=== PATIENT | male | born 1930 | race Caucasian/White ===

== ENCOUNTER 2016-07-06 12:58 | Outpatient (CLI) | payer MEDICARE, OTHER ==
[2016-07-06 13:10] LABS: BASOPHILS % 0.3 (0.0-1.5); EOSINOPHILS % 7.8 % (0.0-6.8); MEAN CORPUSCULAR HEMOGLOBIN 30.5 pg (28.0-34.0); MEAN CORPUSCULAR VOLUME 91.2 fl (80.0-100.0); MONOCYTES % 6.3 % (0.0-11.0); NEUTROPHILS # 2.8 # k/uL (1.4-7.7)
--- NOTE | 2016-07-06 17:03 | Diagnostic Imaging Report ---
[facility] [address] [facility].[address] [address] Report Submission Date: Jul 06, 2016 3:45:13 PM CDT Patient Study Name: ANDREAS MA (ALAN) Date: Jul 06, 2016 1:11:42 PM CDT Modality Type: CR Gender: M Description: CHEST : [birth year] Institution: [facility] Physician: COLLIN JOSE - OP 2 views of the chest History: COUGH, DYSPNEA ON EXERTION. FORMER SMOKER OF 30 YEARS The findings: No comparison studies Emphysema Heart is normal in size. Aortic calcification is present There is no focal consolidation, pleural effusion or pneumothorax There is patchy bibasilar atelectasis Impression: Emphysema Patchy bibasilar atelectasis No pleural effusion or pneumothorax Electronically signed on Jul 06, 2016 3:45:13 PM CDT by: Stephenie GARRETT
== END 2016-07-06 13:00 ==
LOC: LAB 12:58
PROVIDERS: ATTEND Family Medicine
DX: I10 Essential (primary) hypertension (principal); R05 Cough
CPT/HCPCS: 36415; 71020; 85025

== ENCOUNTER 2017-01-17 17:57 | Outpatient (CLI) | payer MEDICARE, OTHER ==
[2017-01-17 18:35] LABS: MEAN CORPUSCULAR HEMOGLOBIN 30.1 pg (28.0-34.0)
--- NOTE | 2017-01-17 18:43 | Diagnostic Imaging Report ---
[facility] [address] [facility].[address] [address] Report Submission Date: Jan 17, 2017 6:37:09 PM CDT Patient Study Name: ANDREAS MA (ALAN) Date: Jan 17, 2017 6:00:25 PM CDT Modality Type: CR Gender: M Description: CHEST : [birth year] Institution: [facility] Physician: MOUNIKA SANCHEZ Examination: PA and lateral chest. History: Evaluate lung ramos. Comparison exam: 06 July 2016 Findings: PA lateral chest demonstrate a normal cardiac and mediastinal silhouette. Vascular calcifications involving the aortic arch. Stable muscle attenuation over the lower lung regions, right greater than left. Lungs are hyperinflated with flattening of the diaphragms. Mild parenchymal fullness involving the inferior/posterior right hilum. No blunting of the costophrenic margins. Osseous structures are appropriate for age. Impression: Stable emphysematous changes. Inferior/posterior right hilar parenchymal haziness/infiltrate. No effusion. Electronically signed on Jan 17, 2017 6:37:09 PM CDT by: Brian Lerner A.O. FOX MEMORIAL HOSPITALJeffrey
[2017-01-18 06:54] LABS: TOXIC GRANULATION PRESENT; TOXIC VACUOLATION PRESENT
== END 2017-01-17 18:00 ==
LOC: RAD 17:57
PROVIDERS: ATTEND Emergency Medicine
DX: J18.9 Pneumonia, unspecified organism (principal)
CPT/HCPCS: 71020; 85025

== ENCOUNTER 2017-01-20 11:56 | Inpatient (IN) | payer MEDICARE, OTHER ==
--- NOTE | 2017-01-20 12:11 | ED Physician Documentation ---
General Adult - HISTORIAN Historian: patient, other (family memeber) - HPI Stated Complaint: n/v/diarrhea, weakness Chief Complaint: General Adult Onset: days ago (3) Timing: still present Severity: moderate Further Comments: yes (Pt is an 86 yo male with c/o n/v/diarrhea, weakness. Pt was seen on 01/17/17 and had an CXR showing Inferior/posterior right hilar haziness/infiltrate. Pt has been taking cefuroxime. Pt has not had fever, and complains only of weakness, diarrhea and nausea/vomiting.) - ROS CONST: weakness EYES/ENT: none CVS/RESP: other (recent infiltrate on cxr) GI/: vomiting, nausea, diarrhea MS/SKIN/LYMPH: none - PAST HX Past History: COPD (on home O2, BPH), hypertension Allergies/Adverse Reactions: Allergies Allergy/AdvReac Type Severity Reaction Status Date / Time Penicillins Allergy Unknown Rash Verified 01/20/17 12:43 Home Medications: Ambulatory Orders Medication Instructions Recorded Budesonide/Formoterol Fumarate 1 puff IN DAILY 01/20/17 [Symbicort 160-4.5 Mcg Inhaler] Memantine HCl/Donepezil HCl 1 cap PO DAILY 01/20/17 [Namzaric 28 mg-10 mg Capsule] - SOCIAL HX Smoking History: quit greater than 1 year - FAMILY HX Family History: No - REVIEWED ASSESSMENTS Nursing Assessment Reviewed: Yes Vitals Reviewed: Yes Progress - Progress Progress: CXR: Stable emphysematous changes. Increased right lower lung pneumonic infiltrate [since 01-17-17]. No effusion. Levaquin 500 mg IV in ER Admit to Dr. Yoon. General Adult Physical Exam - PHYSICAL EXAM GENERAL APPEARANCE: mild distress EENT: pharynx normal NECK: normal inspection, supple RESPIRATORY: no resp distress, chest non-tender, breath sounds normal CVS: reg rate & rhythm, heart sounds normal ABDOMEN: soft, no organomegaly, increased BS BACK: normal inspection, no CVA tenderness SKIN: warm/dry, normal color EXTREMITIES: non-tender, normal range of motion, no evidence of injury NEURO: oriented X3 (baseline mental status), motor nml, sensation nml Discharge Clincal Impression: Pneumonia Qualifiers: Pneumonia type: due to unspecified organism Laterality: right Lung location: lower lobe of lung Qualified Code(s): J18.1 - Lobar pneumonia, unspecified organism Condition: Stable Disposition: 09 ADMITTED INPATIENT Decision to Admit: [id number] Decision Time: 14:43
[2017-01-20] MEDS ORDERED: 0.9 % SODIUM CHLORIDE 500 ML IV ONE (12:21)
[2017-01-20 12:47] LABS: MEAN CORPUSCULAR HEMOGLOBIN 29.7 pg (28.0-34.0); MEAN CORPUSCULAR VOLUME 90.8 fl (80.0-100.0)
[2017-01-20 13:00] LABS: MONOCYTES % 2 % (0-11); SEGMENTED NEUTROPHILS % 94 % (39-79); eGFR (African) > 60; eGFR (Non-African) 55
[2017-01-20] MEDS ORDERED: ONDANSETRON HCL/PF 4 MG/ 2ML VIAL IVP ONE (13:07)
[2017-01-20] MEDS ORDERED: IPRATROPIUM/ALBUTEROL SULFATE 3 ML AMPUL.NEB NEB PRN (14:30)
[2017-01-20] MEDS ORDERED: LEVOFLOXACIN 500MG/D5W 100ML 500 MG in PREMIX BAG 1 BAG IV ONE (14:31)
[2017-01-20] MEDS ORDERED: LEVOFLOXACIN 500MG/D5W 100ML 100 ML IV ONE (14:33)
--- NOTE | 2017-01-20 14:46 | Diagnostic Imaging Report ---
LAUREN SNOW [facility] [address] [facility] [address] [address] Report Submission Date: Jan 20, 2017 1:05:19 PM CDT Patient Study Name: ANDREAS MA (ALAN) Date: Jan 20, 2017 12:42:07 PM CDT Modality Type: CR Gender: M Description: CHEST : [birth year] Institution: [facility] Physician: LAUREN SNOW Examination: PA and lateral chest. History: Evaluate lung ramos. Comparison exam: 17 January 2017 Findings: PA lateral chest demonstrate a normal cardiac and mediastinal silhouette. Vascular calcifications involving the aortic arch. Lungs are hyperinflated with flattening of the diaphragms. Increased parenchymal fullness involving the right lower lung. No blunting of the costophrenic margins. Osseous structures are appropriate for age. Impression: Stable emphysematous changes. Increased right lower lung pneumonic infiltrate. No effusion. Electronically signed on Jan 20, 2017 1:05:19 PM CDT by: Brian GARRETT
[2017-01-20 15:25] VITALS: BMI 24.3
--- NOTE | 2017-01-20 15:59 | History and Physical Report ---
History of Present Illnes - History of Present Illness Reason for Visit: Vomiting History of Present Illness: Patient presented to the ER with vomiting and nausea. He has been ill for a week. He was seen in clinic 01-17 with a cough and SOB. Found to have R hilar infiltrate and WBC 13,000. Put on zpack and cefuroxime. He came back for recheck on 01-19 and was doing better. Daughter reports today he woke up weak and felt much worse. Started vomiting so came to the ER. Found to have increased infiltrate on CXR as well as WBC up to 15,000. He will be admitted for treatment. He has home O2 routinely. SAT's in the 80's without O2 but 92 % on his usual setting. 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 Villalobos who noted 11/18 that patient was incompetent based on his testing.) - Past Surgical History Past Surgical History: Other (Some sort of eye surgery) - Past Family History Brother 1 Family History: (X 3 - Alzeheimers) Sister 1 Family History: (Dementia) - Past Social History Smoke: Quit (after years of heavy smoking) Alcohol: None Drugs: None Lives: With Family (daughter) - Health Maintenance Health Maintenance: Cholesterol, Influenza Vaccine, Pneumococcal Vaccine Pneumonia Vaccine: Yes Resuscitation Status: Resusciation Status Resuscitation Status Full Code Review of Systems - Review of Systems Constitutional: Weakness. negative: Fever Eyes: negative: pain ENT: negative: Ear Pain Respiratory: Cough, Shortness of Breath Cardiovascular: negative: Chest Pain, Palpitations Gastrointestinal: Nausea, Vomiting. negative: Constipation Genitourinary: negative: Dysuria Musculoskeletal: negative: Neck Pain Skin: negative: Rash Neurological: Weakness - Medications/Allergies Allergies/Adverse Reactions: Allergies Allergy/AdvReac Type Severity Reaction Status Date / Time Penicillins Allergy Unknown Rash Verified 01/20/17 12:43 Home Medications: Home Medications Budesonide/Formoterol Fumarate [Symbicort 160-4.5 Mcg Inhaler] 1 puff IN DAILY 01/20/17 Memantine HCl/Donepezil HCl [Namzaric 28 mg-10 mg Capsule] 1 cap PO DAILY Current Inpatient Medications: Current Inpatient Medications Albuterol/Ipratropium (Duoneb) 3 ml NEB QID DALIA Amlodipine Besylate (Norvasc) 5 mg PO DAILY [facility] Donepezil HCl (Aricept) 5 mg PO DAILY [facility] Enoxaparin Sodium (Lovenox) 30 mg SQ QD [facility] Stop: 02/03/17 15:59 Azithromycin 500 mg/ Sodium (Chloride) 250 mls @ 125 mls/hr IV Q24H DALIA Stop: 01/30/17 14:59 Levofloxacin/Dextrose 500 mg/ (PREMIX BAG) 100 mls @ 100 mls/hr IV DAILY [facility] Stop: 02/04/17 08:59 Lisinopril (Prinivil) 10 mg PO DAILY [facility] Montelukast Sodium (Singulair) 10 mg PO DAILY [facility] Mupirocin (Bactroban) 1 appl TP BID [facility] Sodium Chloride (Normal Saline Flush) 3 ml IV BID [facility]IA Tamsulosin HCl (Flomax) 0.4 mg PO DAILY [facility] Exam - Exam Vital Signs: Vital Signs (72 hours) 01/20/17 01/20/17 01/20/17 14:50 14:58 15:06 Temperature 97.2 F L 97.2 F L Pulse Rate [ 93 H Pulse ox] Pulse Rate [ 111 H 111 H Right] Respiratory 24 20 24 Rate Blood Pressure 135/63 [Left Arm] Blood Pressure 140/78 140/78 [Right Arm] O2 Sat by Pulse 94 97 94 Oximetry General: Alert, Oriented to Person, Oriented to Place, Cooperative, No acute distress. No: Oriented to Time HEENT: Atraumatic, PERRLA, EOMI, Mouth Mucous membr. moist/[place] Neck: Normal Range of Motion Lungs: Rhonchi Cardiovascular: Regular rate Abdomen: Normal bowel sounds, Soft, No tenderness Integumentary: Normal Extremities: No edema Neurological: Generalized Weakness Psych/Mental Status: Mood NL. No: Mental status NL, Appropriate Affect, Intact Judgment Assessment/Plan - Assessment/Plan (1) HTN (hypertension) Status: Chronic Current Visit: No Qualifiers: Hypertension type: essential hypertension Qualified Code(s): I10 - Essential (primary) hypertension Plan: Stable. Watch. (2) COPD (chronic obstructive pulmonary disease) Status: Acute Current Visit: Yes Qualifiers: COPD type: COPD with acute lower respiratory infection Qualified Code(s): J44.0 - Chronic obstructive pulmonary disease with acute lower respiratory infection Plan: Plan duonebs qid. Does not seem to be in exacerbation at this time. Will hold IV steroids but watch closely. Continue O2. (3) Dementia Status: Chronic Current Visit: No Qualifiers: Dementia type: Alzheimer's disease Alzheimer's disease onset: late-onset Dementia behavioral disturbance: without behavioral disturbance Qualified Code (s): G30.1 - Alzheimer's disease with late onset; F02.80 - Dementia in other diseases classified elsewhere without behavioral disturbance; F02.80 - Dementia in other diseases classified elsewhere without behavioral disturbance; F02.80 - Dementia in other diseases classified elsewhere without behavioral disturbance Plan: Stable. (4) DAISY (obstructive sleep apnea) Status: Chronic Current Visit: No Plan: Will ask daughter to bring in CPAP. (5) Pneumonia Status: Acute Current Visit: Yes Qualifiers: Pneumonia type: due to unspecified organism Laterality: right Lung location: lower lobe of lung Qualified Code(s): J18.1 - Lobar pneumonia, unspecified organism Plan: Patient has failed outpatient treatment of his pneumonia given worsening symptoms, worsening CXR, and increased WBC. Admit for IV levaquin and zithromax. Watch labs. Blood cultures pending. Lungs are not very good functioning at baseline. Watch closely. VTE Assessment - RISK FACTOR SCORE VTE RISK FACTOR SCORES: AGE OVER 60 YEARS, ACUTE INFECTION OTHER THEN SEPSIS
[2017-01-20] MEDS ORDERED: ENOXAPARIN SODIUM 30 MG/0.3 ML DISP.SYRIN SQ ONE ×2 (17:04→23:16)
[2017-01-20] MEDS: AZITHROMYCIN 500 MG in 0.9 % SODIUM CHLORIDE 250 ML IV SCH (17:08)
[2017-01-20] MEDS: ENOXAPARIN SODIUM 30 MG/0.3 ML DISP.SYRIN SQ SCH (17:08)
[2017-01-20] MEDS ORDERED: IPRATROPIUM/ALBUTEROL SULFATE 3 ML AMPUL.NEB NEB ONE ×2 (17:33→19:22)
[2017-01-20] MEDS: IPRATROPIUM/ALBUTEROL SULFATE 3 ML AMPUL.NEB NEB SCH ×2 (17:38→21:25)
[2017-01-20] MEDS: SALINE FLUSH 10 ML DISP.SYRIN IV SCH (19:27)
[2017-01-20] MEDS: MUPIROCIN 2% OINT 22GM TUBE TP SCH (19:27)
[2017-01-20] MEDS ORDERED: MUPIROCIN 2% OINT 22GM TUBE TP SCH (21:00)
[2017-01-20] MEDS ORDERED: CEFUROXIME AXETIL 250 MG TABLET PO SCH (21:00)
[2017-01-20] MEDS ORDERED: TAMSULOSIN HCL 0.4 MG CAP.ER.24H PO ONE (23:16)
[2017-01-20] MEDS ORDERED: DONEPEZIL HCL 5 MG TABLET PO ONE (23:16)
[2017-01-20] MEDS ORDERED: amLODIPine BESYLATE 5 MG TABLET ONE (23:16)
[2017-01-20] MEDS ORDERED: LISINOPRIL 5 MG TABLET ONE (23:17)
[2017-01-20] MEDS ORDERED: MONTELUKAST SODIUM 10 MG TABLET PO ONE (23:17)
[2017-01-21] MEDS: IPRATROPIUM/ALBUTEROL SULFATE 3 ML AMPUL.NEB NEB SCH ×4 (05:00→21:28)
--- NOTE | 2017-01-21 06:45 | Diagnostic Imaging Report ---
MARIE JOSE [facility] [address] Count Includes [facility] [address] [place], [place]. [address] Report Submission Date: Jan 21, 2017 6:42:56 AM CDT Patient Study Name: ANDREAS MA (ALAN) Date: Jan 21, 2017 6:13:54 AM CDT Modality Type: CR Gender: M Description: ABDOMEN : [birth year] Institution: [facility] Physician: MARIE JOSE Examination: Abdomen series History: Abdominal discomfort Comparison exam: Plain film chest dated 20 January 2017 Findings: 4 views obtained of the chest and abdomen. Single view the chest demonstrates a normal cardiac silhouette. Vascular calcifications involving the aortic arch. Continued parenchymal infiltrate involving the inferolateral margin of the right lower lung: slightly increased when compared with the prior examination. No blunting of the costophrenic margins. No abnormal dilation of the large or small bowel. Air and stool throughout the large bowel. No suspicious calcification projecting over the renal fossa or the lower pelvic region. Osseous structures demonstrate degenerative changes and slight curvature of the lumbar spine to the left. The Impression: Increased right lower lung pneumonic infiltrate. No effusion. No obstruction. No suspicious calcifications by plain film sensitivity. Electronically signed on Jan 21, 2017 6:42:56 AM CDT by: Brian GARRETT
[2017-01-21 06:46] LABS: BASOPHILS % 0.2 (0.0-1.5); EOSINOPHILS % 0.1 % (0.0-6.8); MEAN CORPUSCULAR HEMOGLOBIN 29.4 pg (28.0-34.0); MEAN CORPUSCULAR VOLUME 91.4 fl (80.0-100.0); MONOCYTES % 3.5 % (0.0-11.0); NEUTROPHILS # 11.6 # k/uL (1.4-7.7)
[2017-01-21 06:48] LABS: eGFR (African) > 60; eGFR (Non-African) > 60
[2017-01-21] MEDS ORDERED: LEVOFLOXACIN 500MG/D5W 100ML 100 ML IV ONE (08:36)
[2017-01-21] MEDS: DONEPEZIL HCL 5 MG TABLET PO SCH (08:39)
[2017-01-21] MEDS: TAMSULOSIN HCL 0.4 MG CAP.ER.24H PO SCH (08:41)
[2017-01-21] MEDS: MONTELUKAST SODIUM 10 MG TABLET PO SCH (08:42)
[2017-01-21] MEDS: amLODIPine BESYLATE 5 MG TABLET PO SCH (08:42)
[2017-01-21] MEDS: LISINOPRIL 5 MG TABLET PO SCH (08:42)
[2017-01-21] MEDS: MUPIROCIN 2% OINT 22GM TUBE TP SCH ×2 (08:45→20:52)
[2017-01-21] MEDS ORDERED: FLUTICASONE/SALMETEROL 250-50 INHALER IH SCH (09:00)
[2017-01-21] MEDS: SALINE FLUSH 10 ML DISP.SYRIN IV SCH ×2 (09:00→20:52)
[2017-01-21] MEDS ORDERED: LEVOFLOXACIN 250MG/D5W 50ML 250 MG in PREMIX BAG 1 BAG IV SCH (09:00)
[2017-01-21] MEDS: LEVOFLOXACIN 500MG/D5W 100ML 500 MG in PREMIX BAG 1 BAG IV SCH (09:00)
[2017-01-21] MEDS ORDERED: IPRATROPIUM/ALBUTEROL SULFATE 3 ML AMPUL.NEB NEB ONE ×4 (09:23→21:25)
[2017-01-21 10:55] LABS: BASOPHILS % 0.2 (0.0-1.5); EOSINOPHILS % 0.3 % (0.0-6.8); MEAN CORPUSCULAR HEMOGLOBIN 29.3 pg (28.0-34.0); MEAN CORPUSCULAR VOLUME 91.5 fl (80.0-100.0); MONOCYTES % 3.7 % (0.0-11.0); NEUTROPHILS # 9.8 # k/uL (1.4-7.7)
[2017-01-21] MEDS: AZITHROMYCIN 500 MG in 0.9 % SODIUM CHLORIDE 250 ML IV SCH (14:20)
[2017-01-21] MEDS: ENOXAPARIN SODIUM 30 MG/0.3 ML DISP.SYRIN SQ SCH (15:13)
--- NOTE | 2017-01-21 17:59 | Inpatient Progress Note ---
Subjective - Required Recertification Statement I anticipate X number of days because-include discharge plan: 3 - Review of Systems Events since last encounter: Javier had some dark coffee ground appearing emesis early this am as well as some dark stools. He has not had any recurrence noted. He has been getting stronger. he is tolerating his levofloxacin well. His chest XR appears stable. F/U of his CBC did not show any further significant drop in his hemoglobin other than the initial drop, which was, I believe hydrational. General: Denies: Chills, Night Sweats HEENT: Denies: Head Aches Pulmonary: Dyspnea, Cough Cardiovascular: Denies: Chest Pain, Palpitations Gastrointestinal: Melena. Denies: Nausea Genitourinary: Denies: Dysuria Musculoskeletal: Denies: Neck Pain, Shoulder Pain Neurological: Weakness, Confusion Objective - Exam Vitals and I&O: Vital Signs Temp 96.9 F L 01/21/17 16:58 Pulse 109 H 01/21/17 16:58 Resp 20 01/21/17 16:58 BP 139/69 01/21/17 16:58 Pulse Ox 100 01/21/17 16:58 Intake & Output 01/20/17 01/21/17 01/21/17 23:59 11:59 23:59 Intake Total 1360 1959 Output Total 250 4 Balance 1110 1955 Weight 66.224 kg 66.224 kg Intake: Oral 1360 1959 Output: Urine 4 Emesis 250 Other: Voiding Method Toilet Toilet # Voids 3 General: Alert, Oriented to Person HEENT: Atraumatic, PERRLA Neck: Supple, No JVD Lungs: Wheezes, Prolonged Expiration Cardiovascular: Regular rate Abdomen: Normal bowel sounds, Soft, No tenderness Extremities: No clubbing Skin: Normal Neurological: Normal speech, Generalized Weakness Psych/Mental Status: Other (some confusion) - Results Results: Laboratory Results WBC 11.10 K/ul (4.00-12.00) 01/21/17 10:45 RBC 3.63 M/ul (3.90-5.20) L 01/21/17 10:45 Hgb 10.6 g/dL (12.0-18.0) L 01/21/17 10:45 Hct 33.2 % (37.0-53.0) L 01/21/17 10:45 MCV 91.5 fl (80.0-100.0) 01/21/17 10:45 MCH 29.3 pg (28.0-34.0) 01/21/17 10:45 MCHC 32.0 g/dL (30.0-36.0) 01/21/17 10:45 RDW 13.0 % (11.3-14.3) 01/21/17 10:45 Plt Count 181 K/mm3 (130-400) 01/21/17 10:45 Neut % (Auto) 88.1 % (39.0-79.0) H 01/21/17 10:45 Lymph % (Auto) 6.0 % (16.0-50.0) L 01/21/17 10:45 Terry % (Auto) 3.7 % (0.0-11.0) 01/21/17 10:45 Eos % (Auto) 0.3 % (0.0-6.8) 01/21/17 10:45 Baso % (Auto) 0.2 (0.0-1.5) 01/21/17 10:45 Neut # (Auto) 9.8 # k/uL (1.4-7.7) H 01/21/17 10:45 Lymph # (Auto) 0.7 # k/uL (0.6-4.0) 01/21/17 10:45 Terry # (Auto) 0.4 # k/uL (0.0-0.9) 01/21/17 10:45 Eos # (Auto) 0.0 # k/uL (0.0-0.6) 01/21/17 10:45 Baso # (Auto) 0.0 # k/uL (0.0-0.5) 01/21/17 10:45 Seg Neutrophils % 94 % (39-79) H 01/20/17 12:35 Lymphocytes % 4 % (16-50) L 01/20/17 12:35 Reactive Lymphs % 1.7 % (0.0-5.0) 01/21/17 10:45 Monocytes % 2 % (0-11) 01/20/17 12:35 Reactive Lymphs # 0.2 # k/uL (0.0-0.8) 01/21/17 10:45 Plt Morphology Comment Normal (NORMAL) 01/20/17 12:35 RBC Morph Comment Normal (NORMAL) 01/20/17 12:35 Sodium 138 mmol/L (137-145) 01/21/17 06:00 Potassium 3.0 mmol/L (3.5-5.1) L 01/21/17 06:00 Chloride 87 mmol/L (98-107) L 01/21/17 06:00 Carbon Dioxide 40 mmol/L (22-30) H 01/21/17 06:00 BUN 45 mg/dL (9-20) H 01/21/17 06:00 Creatinine 1.20 mg/dL (0.66-1.25) 01/21/17 06:00 Estimated Creat Clear 39 01/21/17 06:00 Est GFR ( Amer) > 60 (60-) 01/21/17 06:00 Est GFR (Non-Af Amer) > 60 (60-) 01/21/17 06:00 Glucose 156 mg/dL (74-106) H 01/21/17 06:00 Calcium 8.1 mg/dL (8.4-10.2) L 01/21/17 06:00 Total Bilirubin 0.2 mg/dL (0.2-1.3) 01/21/17 06:00 AST 25 U/L (15-46) 01/21/17 06:00 ALT 41 U/L (13-69) 01/21/17 06:00 Alkaline Phosphatase 108 U/L (38-126) 01/21/17 06:00 NT-Pro-B Natriuret Pep 311.9 pg/mL (15.0-450.0) 01/20/17 12:35 Total Protein 5.1 g/dL (6.3-8.2) L 01/21/17 06:00 Albumin 2.3 g/dL (3.5-5.0) L 01/21/17 06:00 Assessment/Plan - Assessment/Plan (1) COPD (chronic obstructive pulmonary disease) Status: Acute Current Visit: Yes Qualifiers: COPD type: COPD with acute lower respiratory infection Qualified Code(s): J44.0 - Chronic obstructive pulmonary disease with acute lower respiratory infection Assessment: Improved (2) Pneumonia Status: Acute Current Visit: Yes Qualifiers: Pneumonia type: due to unspecified organism Laterality: right Lung location: lower lobe of lung Qualified Code(s): J18.1 - Lobar pneumonia, unspecified organism Assessment: Continue nebulizer/levofloxacin (3) Dementia Status: Chronic Current Visit: No Qualifiers: Dementia type: Alzheimer's disease Alzheimer's disease onset: late-onset Dementia behavioral disturbance: without behavioral disturbance Qualified Code (s): G30.1 - Alzheimer's disease with late onset; F02.80 - Dementia in other diseases classified elsewhere without behavioral disturbance; F02.80 - Dementia in other diseases classified elsewhere without behavioral disturbance; F02.80 - Dementia in other diseases classified elsewhere without behavioral disturbance Assessment: Chronic (4) HTN (hypertension) Status: Chronic Current Visit: No Qualifiers: Hypertension type: essential hypertension Qualified Code(s): I10 - Essential (primary) hypertension Assessment: Well controlled (5) GI bleed Status: Acute Current Visit: Yes Assessment: Without recurrence Plan: Check CBC in am
[2017-01-22] MEDS ORDERED: LISINOPRIL 20 MG TABLET ONE (00:19)
[2017-01-22 06:47] LABS: MEAN CORPUSCULAR VOLUME 91.4 fl (80.0-100.0)
[2017-01-22] MEDS ORDERED: LEVOFLOXACIN 500MG/D5W 100ML 100 ML IV ONE (08:32)
[2017-01-22] MEDS ORDERED: IPRATROPIUM/ALBUTEROL SULFATE 3 ML AMPUL.NEB NEB ONE ×2 (08:33→20:32)
[2017-01-22] MEDS: TAMSULOSIN HCL 0.4 MG CAP.ER.24H PO SCH (08:37)
[2017-01-22] MEDS: MONTELUKAST SODIUM 10 MG TABLET PO SCH (08:37)
[2017-01-22] MEDS: LISINOPRIL 5 MG TABLET PO SCH (08:37)
[2017-01-22] MEDS: DONEPEZIL HCL 5 MG TABLET PO SCH (08:38)
[2017-01-22] MEDS: amLODIPine BESYLATE 5 MG TABLET PO SCH (08:38)
[2017-01-22] MEDS: SALINE FLUSH 10 ML DISP.SYRIN IV SCH ×2 (08:39→20:32)
[2017-01-22] MEDS: LEVOFLOXACIN 500MG/D5W 100ML 500 MG in PREMIX BAG 1 BAG IV SCH (08:42)
[2017-01-22] MEDS: IPRATROPIUM/ALBUTEROL SULFATE 3 ML AMPUL.NEB NEB SCH ×4 (08:58→21:20)
--- NOTE | 2017-01-22 11:38 | Inpatient Progress Note ---
Subjective - Required Recertification Statement I anticipate X number of days because-include discharge plan: 3 - Review of Systems Events since last encounter: Norm is feeling better. His blood work shows a slightly decreased Hgb, but it is not nearing the need for transfusion. He is not having any pain. He remains a little confused, but did not have as much sundowning last evening. General: Denies: Chills HEENT: Denies: Head Aches Pulmonary: Dyspnea, Cough Cardiovascular: Denies: Chest Pain Gastrointestinal: Nausea, Vomiting. Denies: Abdominal Pain, Diarrhea Genitourinary: Denies: Dysuria Musculoskeletal: Denies: Neck Pain, Shoulder Pain, Arm Pain Neurological: Weakness, Confusion Objective - Exam Vitals and I&O: Vital Signs Temp 96.9 F L 01/22/17 09:37 Pulse 109 H 01/22/17 10:00 Resp 20 01/22/17 10:00 BP 129/71 01/22/17 09:37 Pulse Ox 95 01/22/17 09:37 Intake & Output 01/21/17 01/21/17 01/22/17 11:59 23:59 11:59 Intake Total 1360 1960 240 Output Total 250 4 Balance 1110 1956 240 Weight 66.224 kg Intake: Oral 1360 1960 240 Output: Urine 4 Emesis 250 Other: Voiding Method Toilet Toilet Toilet # Voids 3 # Bowel Movements 1 0 General: Alert, Oriented to Person, No acute distress HEENT: Atraumatic, PERRLA, EOMI Neck: Supple, No JVD Lungs: Wheezes, Prolonged Expiration Cardiovascular: Regular rate Abdomen: Normal bowel sounds, Soft, No tenderness, Umbilical Hernia Extremities: No clubbing, No cyanosis Skin: Normal, [place] Neurological: Normal speech Psych/Mental Status: Mental status NL (at baseline) - Results Results: Laboratory Results WBC 14.80 K/ul (4.00-12.00) H 01/22/17 06:20 RBC 3.52 M/ul (3.90-5.20) L 01/22/17 06:20 Hgb 10.2 g/dL (12.0-18.0) L 01/22/17 06:20 Hct 32.2 % (37.0-53.0) L 01/22/17 06:20 MCV 91.4 fl (80.0-100.0) 01/22/17 06:20 MCH 29.0 pg (28.0-34.0) 01/22/17 06:20 MCHC 31.8 g/dL (30.0-36.0) 01/22/17 06:20 RDW 13.1 % (11.3-14.3) 01/22/17 06:20 Plt Count 253 K/mm3 (130-400) 01/22/17 06:20 Neut % (Auto) 88.1 % (39.0-79.0) H 01/21/17 10:45 Lymph % (Auto) 6.0 % (16.0-50.0) L 01/21/17 10:45 Josephine % (Auto) 3.7 % (0.0-11.0) 01/21/17 10:45 Eos % (Auto) 0.3 % (0.0-6.8) 01/21/17 10:45 Baso % (Auto) 0.2 (0.0-1.5) 01/21/17 10:45 Neut # (Auto) 9.8 # k/uL (1.4-7.7) H 01/21/17 10:45 Lymph # (Auto) 0.7 # k/uL (0.6-4.0) 01/21/17 10:45 Josephine # (Auto) 0.4 # k/uL (0.0-0.9) 01/21/17 10:45 Eos # (Auto) 0.0 # k/uL (0.0-0.6) 01/21/17 10:45 Baso # (Auto) 0.0 # k/uL (0.0-0.5) 01/21/17 10:45 Seg Neutrophils % 94 % (39-79) H 01/20/17 12:35 Lymphocytes % 4 % (16-50) L 01/20/17 12:35 Reactive Lymphs % 1.7 % (0.0-5.0) 01/21/17 10:45 Monocytes % 2 % (0-11) 01/20/17 12:35 Reactive Lymphs # 0.2 # k/uL (0.0-0.8) 01/21/17 10:45 Plt Morphology Comment Normal (NORMAL) 01/20/17 12:35 RBC Morph Comment Normal (NORMAL) 01/20/17 12:35 Sodium 138 mmol/L (137-145) 01/21/17 06:00 Potassium 3.0 mmol/L (3.5-5.1) L 01/21/17 06:00 Chloride 87 mmol/L (98-107) L 01/21/17 06:00 Carbon Dioxide 40 mmol/L (22-30) H 01/21/17 06:00 BUN 45 mg/dL (9-20) H 01/21/17 06:00 Creatinine 1.20 mg/dL (0.66-1.25) 01/21/17 06:00 Estimated Creat Clear 39 01/21/17 06:00 Est GFR ( Amer) > 60 (60-) 01/21/17 06:00 Est GFR (Non-Af Amer) > 60 (60-) 01/21/17 06:00 Glucose 156 mg/dL (74-106) H 01/21/17 06:00 Calcium 8.1 mg/dL (8.4-10.2) L 01/21/17 06:00 Total Bilirubin 0.2 mg/dL (0.2-1.3) 01/21/17 06:00 AST 25 U/L (15-46) 01/21/17 06:00 ALT 41 U/L (13-69) 01/21/17 06:00 Alkaline Phosphatase 108 U/L (38-126) 01/21/17 06:00 NT-Pro-B Natriuret Pep 311.9 pg/mL (15.0-450.0) 01/20/17 12:35 Total Protein 5.1 g/dL (6.3-8.2) L 01/21/17 06:00 Albumin 2.3 g/dL (3.5-5.0) L 01/21/17 06:00 Assessment/Plan - Assessment/Plan (1) COPD (chronic obstructive pulmonary disease) Status: Acute Current Visit: Yes Qualifiers: COPD type: COPD with acute lower respiratory infection Qualified Code(s): J44.0 - Chronic obstructive pulmonary disease with acute lower respiratory infection Assessment: Contineu nebulizer therapy/O2 (2) Pneumonia Status: Acute Current Visit: Yes Qualifiers: Pneumonia type: due to unspecified organism Laterality: right Lung location: lower lobe of lung Qualified Code(s): J18.1 - Lobar pneumonia, unspecified organism Assessment: Continue levofloxacin Recheck CXR in the am (3) Dementia Status: Chronic Current Visit: No Qualifiers: Dementia type: Alzheimer's disease Alzheimer's disease onset: late-onset Dementia behavioral disturbance: without behavioral disturbance Qualified Code (s): G30.1 - Alzheimer's disease with late onset; F02.80 - Dementia in other diseases classified elsewhere without behavioral disturbance; F02.80 - Dementia in other diseases classified elsewhere without behavioral disturbance; F02.80 - Dementia in other diseases classified elsewhere without behavioral disturbance Assessment: Chronic (4) HTN (hypertension) Status: Chronic Current Visit: No Qualifiers: Hypertension type: essential hypertension Qualified Code(s): I10 - Essential (primary) hypertension Assessment: Well controlled (5) GI bleed Status: Acute Current Visit: Yes Assessment: CBC ordered for the am. (6) Ataxia Status: Acute Current Visit: Yes Assessment: PT order written
[2017-01-22] MEDS ORDERED: ENOXAPARIN SODIUM 30 MG/0.3 ML DISP.SYRIN SQ ONE (12:45)
[2017-01-22] MEDS: AZITHROMYCIN 500 MG in 0.9 % SODIUM CHLORIDE 250 ML IV SCH (14:39)
[2017-01-22] MEDS: MUPIROCIN 2% OINT 22GM TUBE TP SCH ×2 (15:11→20:32)
[2017-01-22] MEDS: ENOXAPARIN SODIUM 30 MG/0.3 ML DISP.SYRIN SQ SCH (16:03)
[2017-01-23] MEDS ORDERED: LEVOFLOXACIN 500MG/D5W 100ML 100 ML IV ONE (05:54)
[2017-01-23] MEDS ORDERED: IPRATROPIUM/ALBUTEROL SULFATE 3 ML AMPUL.NEB NEB ONE (05:55)
[2017-01-23] MEDS ORDERED: LISINOPRIL 5 MG TABLET ONE (05:55)
[2017-01-23 07:01] LABS: MEAN CORPUSCULAR HEMOGLOBIN 29.1 pg (28.0-34.0); MEAN CORPUSCULAR VOLUME 88.5 fl (80.0-100.0)
[2017-01-23 09:18] VITALS: BP 100/46
[2017-01-23] MEDS: IPRATROPIUM/ALBUTEROL SULFATE 3 ML AMPUL.NEB NEB SCH (09:50)
[2017-01-23] MEDS ORDERED: PANTOPRAZOLE SODIUM INJ. 40 MG VIAL ONE ×2 (10:03→10:05)
[2017-01-23] MEDS ORDERED: 0.9 % SODIUM CHLORIDE 50 ML IV ONE (10:09)
[2017-01-23] MEDS: LEVOFLOXACIN 500MG/D5W 100ML 500 MG in PREMIX BAG 1 BAG IV SCH (10:15)
[2017-01-23] MEDS ORDERED: PANTOPRAZOLE SODIUM 40 MG in 0.9 % SODIUM CHLORIDE 50 ML IV SCH (11:00)
[2017-01-23] MEDS: DONEPEZIL HCL 5 MG TABLET PO SCH (11:19)
[2017-01-23] MEDS: MUPIROCIN 2% OINT 22GM TUBE TP SCH (11:19)
[2017-01-23] MEDS: SALINE FLUSH 10 ML DISP.SYRIN IV SCH (11:19)
[2017-01-23] MEDS: TAMSULOSIN HCL 0.4 MG CAP.ER.24H PO SCH (11:20)
[2017-01-23] MEDS: LISINOPRIL 5 MG TABLET PO SCH (11:21)
[2017-01-23] MEDS: amLODIPine BESYLATE 5 MG TABLET PO SCH (11:21)
[2017-01-23] MEDS: MONTELUKAST SODIUM 10 MG TABLET PO SCH (11:21)
--- NOTE | 2017-01-24 09:55 | Discharge Summary ---
DATE OF ADMISSION: January 20, 2017 DATE OF DISCHARGE: January 23, 2017 DIAGNOSES ON THIS HOSPITALIZATION: 1. Right lower lobe pneumonia. 2. Dementia. 3. Chronic obstructive pulmonary disease (COPD). 4. Hypertension. 5. GI Bleed. 6. Ataxia. SUMMARIZATION OF ADMISSION HISTORY AND PHYSICAL: This is an 86-year-old male who initially was seen 3 days prior to admission at the clinic. He had a fever of 102.4. He refused hospitalization at that time. He was started on azithromycin and Cefuroxime and returned to the clinic the next day and he was afebrile and feeling significantly better. However, the day after, he had a fall and was feeling very weak. He came to the emergency room and was noted to have worsening of his right lower lobe pneumonia. His antibiotic coverage was switched to Levaquin and blood cultures were obtained. His blood cultures did grow out MRSA and it was sensitive to Levaquin, so the Levaquin was continued. He had some dark melanotic-appearing stools but did not have a significant drop in his hemoglobin the first 2 days he was in the hospital. However, on the morning of January 23, 2017, his hemoglobin had dropped from 10.2 to 8.1 and in the period between those 2 CBCs, he had a couple of melanotic stools. As a result, I contacted the [facility] , specifically Dr. Wilks, who accepted him for transfer for likely an endoscopy and likely a transfusion. He will be transferred to [facility] by ambulance. He is in poor condition. I did discuss with his daughter, Conchita Sotelo, before he was transferred the reason for transfer , as well as likely interventions, specifically, an EGD and/or colonoscopy as indicated by the team at [facility]. CHAIMD
== END 2017-01-23 11:48 | disposition short-term general hospital (02) | DRG 194 ==
LOC: ED 11:56 → SOUTH 14:25
PROVIDERS: ADMIT Family Medicine; ATTEND Family Medicine
DX: J18.9 Pneumonia, unspecified organism (principal); J44.1 Chronic obstructive pulmonary disease with (acute) exacerbation; K92.2 Gastrointestinal hemorrhage, unspecified; F03.90 Unspecified dementia, unspecified severity, without behavioral disturbance, psychotic disturbance, mood disturbance, and anxiety; I10 Essential (primary) hypertension; R27.8 Other lack of coordination
CPT/HCPCS: 36415; 71020; 74022; 80053; 83880; 85025; 85027; 87040; 87186; J0456; J1650; J1956; J2405; J7050; J7060; 99222; 99232; 99238; 99283; 99284; S1016

== ENCOUNTER 2017-01-28 11:50 | Inpatient (IN) | payer MEDICARE, OTHER ==
[2017-01-28 13:20] VITALS: BMI 26.1
[2017-01-28] MEDS ORDERED: 0.9 % SODIUM CHLORIDE 1,000 ML IV ONE ×2 (14:35→16:35)
[2017-01-28] MEDS ORDERED: LORATADINE 10 MG TABLET PO PRN (14:56)
[2017-01-28] MEDS ORDERED: VANCOMYCIN HCL 1 GM in 0.9 % SODIUM CHLORIDE 250 ML IV SCH (15:00)
[2017-01-28] MEDS ORDERED: IPRATROPIUM/ALBUTEROL SULFATE 3 ML AMPUL.NEB NEB SCH (15:00)
[2017-01-28] MEDS ORDERED: TAMSULOSIN HCL 0.4 MG CAP.ER.24H PO ONE (15:07)
[2017-01-28] MEDS ORDERED: MONTELUKAST SODIUM 10 MG TABLET PO ONE (15:08)
[2017-01-28] MEDS ORDERED: MEMANTINE HCL 10 MG TABLET PO ONE (15:08)
[2017-01-28] MEDS ORDERED: IPRATROPIUM/ALBUTEROL SULFATE 3 ML AMPUL.NEB NEB ONE (15:08)
[2017-01-28] MEDS ORDERED: DONEPEZIL HCL 5 MG TABLET PO ONE (15:08)
[2017-01-28] MEDS: DONEPEZIL HCL 5 MG TABLET PO SCH ×2 (15:10→15:32)
[2017-01-28] MEDS: MONTELUKAST SODIUM 10 MG TABLET PO SCH ×2 (15:11→15:32)
[2017-01-28] MEDS: TAMSULOSIN HCL 0.4 MG CAP.ER.24H PO SCH ×2 (15:11→15:31)
[2017-01-28 15:25] VITALS: BP 148/86
[2017-01-28] MEDS ORDERED: SALINE FLUSH 10 ML DISP.SYRIN IVF ONE (15:54)
[2017-01-28] MEDS ORDERED: ePHEDrine SULFATE 50 MG/1 ML IVP ONE ×2 (16:40→16:44)
[2017-01-28] MEDS ORDERED: EPINEPHrine 0.1 MG/ML DISP.SYRIN IVP STA ×3 (16:40→17:06)
[2017-01-28] MEDS ORDERED: KETAMINE HCL 200 MG/20 ML VIAL IVP ONE (16:54)
[2017-01-28] MEDS ORDERED: KETAMINE HCL 200 MG/20 ML VIAL ONE (16:54)
[2017-01-28] MEDS ORDERED: SUCCINYLCHOLINE CHLORIDE 20 MG/ML 10ML VIAL IVP ONE (16:56)
[2017-01-28 17:17] LABS: MEAN CORPUSCULAR HEMOGLOBIN 29.8 pg (28.0-34.0); MEAN CORPUSCULAR VOLUME 94.9 fl (80.0-100.0)
[2017-01-28 17:44] LABS: MONOCYTES % 4 % (0-11); SEGMENTED NEUTROPHILS % 76 % (39-79)
--- NOTE | 2017-01-28 18:31 | Diagnostic Imaging Report ---
[facility] [address] [facility].[address] [id number] Report Submission Date: Jan 28, 2017 4:46:55 PM CDT Patient Study Name: ANDREAS MA (ALAN) Date: Jan 28, 2017 3:25:44 PM CDT Modality Type: CR Gender: M Description: CHEST : [birth year] Institution: [facility] Physician: [facility] Examination: PA and lateral chest. History: Evaluate lung ramos. Comparison exam: 20 January 2017 Findings: PA lateral chest demonstrates normal cardiac size. Vascular calcifications involving the aortic arch. Continued consolidative process involving the right lower lung: increased since prior study. New left base blunting /effusion. Apical lung ramos are clear. Osseous structures are appropriate for age. Impression: Increased right lower lung infiltrative process. New left base infiltrate/effusion. As findings have progressively worsened, consider pulmonary consultation if not already obtained. Electronically signed on Jan 28, 2017 4:46:55 PM CDT by: Brian GARRETT
--- NOTE | 2017-01-28 18:32 | Diagnostic Imaging Report ---
KARIME EMERSON [facility] [address] [facility].[address] [address] Report Submission Date: Jan 28, 2017 5:46:59 PM CDT Patient Study Name: ANDREAS MA) Date: Jan 28, 2017 5:27:49 PM CDT Modality Type: DX Gender: M Description: CHEST : [birth year] Institution: [facility] Physician: KARIME EMERSON Examination: Portable chest History: Evaluate lung ramos. Comparison exam: 28 January 2017 Findings: Single view of the chest demonstrates normal cardiac size. Vascular calcifications involving the aortic arch. Continued consolidative process involving the right lower lung. Continued left base obscuration /effusion. Increased haziness involving the right upper lung. Placement of endotracheal tube: tip 3.5 cm above the yovana. Osseous structures are appropriate for age. Impression: Continued left base effusion/consolidation. Increased parenchymal hazy as involving the right hemithorax. Placement of endotracheal tube: tip 3.5 cm above the yovana. Electronically signed on Jan 28, 2017 5:46:59 PM CDT by: Brian GARRETT
[2017-01-28] MEDS ORDERED: MEMANTINE HCL 10 MG TABLET PO SCH (21:00)
[2017-01-29] MEDS ORDERED: MULTIVITAMIN 1 EACH TABLET PO SCH (09:00)
--- NOTE | 2017-01-31 10:19 | History and Physical Report ---
HISTORY AND PHYSICAL AND DISCHARGE SUMMARY ADMISSION DATE: January 28, 2017 DISCHARGE DATE: January 28, 2017 DIAGNOSES ON THIS HOSPITALIZATION: 1. Renal failure. 2. Pneumonia. 3. Cardiac arrest. SUMMARIZATION OF ADMISSION HISTORY AND PHYSICAL: This is an 86-year-old male well known to myself who just arrived here a few hours ago from . He had been transferred back here for skilled care. He had arrived and he had gotten settled in. They had done some incentive spirometry training with him. He was alert and conversant. Nurses went to check on him and noted that he was apneic. Because he was a Full Code , a Full Code was undertaken. This was run by Dr. Des Murry. Please see his notes for details of the code. I had a discussion with his daughter, Conchita, both Dr. Murry and I did, and described to her the likely outcome should we continue to code. We were only able to get him back into V-fib. We were not able to obtain a pulse again, and she recommended at that point that we stop further resuscitation efforts. He was discharged to [facility] . TAMI
== END 2017-01-28 18:40 | DRG 682 ==
LOC: SOUTH 11:50
PROVIDERS: ADMIT Family Medicine; ATTEND Family Medicine
DX: N19 Unspecified kidney failure (principal); J18.9 Pneumonia, unspecified organism; I46.9 Cardiac arrest, cause unspecified
CPT/HCPCS: 71010; 71020; 80053; 82553; 83880; 84484; 85025; 85379; J0171; J0330; J3370; J7050; J7030; S1016